=== PATIENT | male | born 1990 | race Caucasian/White ===

== ENCOUNTER 2025-03-13 11:53 | Emergency (ER) | payer SELFPAY ==
[2025-03-13] MEDS: Ketorolac 30 MG/ML SDV IM ONE (12:39)
== END 2025-03-13 13:11 | disposition home or self-care (01) ==
LOC: MW.ED 11:53
DX: M54.50 Low back pain, unspecified (principal); T14.8XXA Other injury of unspecified body region, initial encounter
CPT/HCPCS: 72128; 96372; 99284; J1885; 99283